=== PATIENT | male | born 1975 | race Hispanic/Latino ===

== ENCOUNTER 2016-07-12 14:47 | Emergency (ER) | payer SELFPAY ==
[~2016-07-12] VITALS: Ht 149.9 cm; Wt 67.0 kg
[2016-07-12 15:42] LABS: HEMATOCRIT 42.7 % (39.0-50.0); HEMOGLOBIN 15.3 g/dl (14.0-18.0); IMMATURE GRANULOCYTES 0.8 % (0.0-1.0); MEAN CELL VOLUME 85.6 fL CALC (80.0-100.0); MEAN CORPUSCULAR HGB 30.7 pG CALC (26.0-32.0); MEAN CORPUSCULAR HGB CONC 35.8 g/L CALC (32.0-36.0); NEUT# 10.34 thou/uL (1.82-7.42); RED BLOOD COUNT 4.99 mill/uL (4.70-6.10); RED CELL DISTRI WIDTH 12.3 % (11.5-15.5)
[2016-07-12 15:56] LABS: ALBUMIN 5.2 g/dL (3.2-5.0); ALKALINE PHOSPHATASE 98 u/l (38-126); AMYLASE 65 u/l (30-110); ANION GAP 24 (6-22 (CALC)); BILIRUBIN, TOTAL 0.8 mg/dL (0.0-1.4); BUN 10 mg/dL (9-20); BUN/CREATININE RATIO 16 (12-20 (CALC)); CALCIUM 9.7 mg/dL (8.4-10.2); CARBON DIOXIDE 23 mmol/l (22-30); CHLORIDE 105 mmol/l (95-108); CREATININE 0.6 mg/dL (0.7-1.3); GFR > 60 ML/MIN (>=60 (CALC)); GFR FOR AFR.AMER. > 60 ML/MIN (>=60 (CALC)); GLUCOSE 246 mg/dL (75-110); LIPASE 43 u/l (23-300); POTASSIUM 3.7 mmol/l (3.5-5.1); SGOT/AST 23 u/l (17-59); SGPT/ALT 26 u/l (21-72); SODIUM 148 mmol/l (137-146); TOTAL PROTEIN 9.9 g/dL (6.3-8.2)
[2016-07-12 16:07] LABS: MYOGLOBIN 49 ng/mL (0 - 121)
[2016-07-12] MEDS ORDERED: ZOFRAN4 MG/TAB PO (17:38)
[2016-07-12] MEDS ORDERED: NEXIUM40 M1 PO (17:38)
[2016-07-12] MEDS ORDERED: PERCOCET 5/325M1 TAB PO (17:38)
[2016-07-12 17:51] VITALS: BP 168/97
== END 2016-07-12 18:16 | disposition home or self-care (01) | DRG 392 ==
LOC: ED 14:47
PROVIDERS: Emergency Medicine
DX: R10.13 Epigastric pain (principal); R11.0 Nausea; Z72.89 Other problems related to lifestyle
CPT/HCPCS: Q9967; S0164

== ENCOUNTER 2024-05-05 16:33 | Emergency (ER) | payer SELFPAY ==
[~2024-05-05] VITALS: Ht 149.9 cm; Wt 49.8 kg
[~2024-05-05 16:33] MED LIST: NEXIUM40 M1 PO; PERCOCET 5/325M1 TAB PO; ZOFRAN4 MG/TAB PO
[2024-05-05] MEDS ORDERED: metroNIDAZOLE 500 MG/TAB PO ONE (18:25)
[2024-05-05] MEDS ORDERED: FLUCONAZOLE 150 MG/TAB PO ONE (18:25)
[2024-05-05] MEDS ORDERED: AZITHROMYCIN 250 MG/TAB PO ONE (18:25)
[2024-05-05 18:52] VITALS: BP 122/67
[2024-05-05 19:18] LABS: URINE BILIRUBIN - DIPSTICK Negative (NEGATIVE); URINE BLOOD DIPSTICK Negative (NEGATIVE); URINE COLOR Yellow; URINE GLUCOSE - DIPSTICK 100 mg/dL (NEGATIVE); URINE KETONE Negative (NEGATIVE); URINE LEUK ESTERASE Negative (NEGATIVE); URINE NITRITE - DIPSTICK Negative (Negative); URINE PROTEIN - DIPSTICK Negative (NEG-TRACE); URINE UROBILINOGEN - DIPSTICK 0.2 E.U./dL (0.2)
== END 2024-05-05 19:14 | disposition home or self-care (01) | DRG 728 ==
LOC: ED 16:33
PROVIDERS: Emergency Medicine
DX: N49.9 Inflammatory disorder of unspecified male genital organ (principal)